=== PATIENT | male | born 1990 | race Two or more races ===

== ENCOUNTER 2016-09-13 18:57 | Emergency (ER) | payer SELFPAY ==
[2016-09-13 19:04] VITALS: BP 144/88; PULSE 101; TEMP 99; BMI 28.1
--- NOTE | 2016-09-13 20:11 | PDOC ---
History of Present Illness - General Chief Complaint: Cold Symptoms Stated Complaint: COLD SYMPTOMS Time Seen by Provider: 09/13/16 19:45 - History of Present Illness Initial Comments: 09/13/16 20:24 Mr. Yang is a 26-year-old male with no PMH presenting to [facility] with a chief complaint complaint of sore throat 3 days. Patient states that his pain is worse when trying to swallow. Denies cough runny nose. States that he had fevers last night with associated chills and nausea. He did not vomit. He last took Tylenol for pain last night. Denies recent travel, sick contacts, chest pain, shortness of breath, diarrhea or constipation, and dysuria. Past History - Past Medical History Allergies/Adverse Reactions: Allergies Allergy/AdvReac Type Severity Reaction Status Date / Time No Known Allergies Allergy Verified 09/13/16 19:01 Home Medications: Ambulatory Orders Ibuprofen 600 mg PO QID #28 tablet 09/13/16 Other medical history: DENIES. - Psycho/Social/Smoking Cessation Hx Suicidal Ideation: No Smoking History: Current some day smoker Have you smoked in the past 12 months: Yes Information on smoking cessation initiated: No *Physical Exam - Vital Signs Last Vital Signs Temp Pulse Resp BP Pulse Ox 99 F 101 H 19 144/88 98 09/13/16 19:01 09/13/16 19:01 09/13/16 19:01 09/13/16 19:01 09/13/16 19:01 - Physical Exam Comments: 09/13/16 20:30 GENERAL: Well developed, well nourished. Awake and alert. No acute distress. VVS HEENT: Normocephalic, atraumatic. PERRLA, EOMI. No conjunctival pallor. Sclera are non- icteric. Moist mucous membranes. Posterior Oropharynx is with erythema and exudate NECK: Supple. Full ROM. No JVD. Carotid pulses 2+ and symmetric, without bruits. No thyromegaly. No lymphadenopathy. CARDIOVASCULAR: Tachycardic. Regular rate and rhythm. No murmurs, rubs, or gallops. Distal pulses are 2+ and symmetric. PULMONARY: No evidence of respiratory distress. Lungs clear to auscultation bilaterally. No wheezing, rales or rhonchi. Medical Decision Making - Medical Decision Making 09/13/16 20:31 Will rule out strep at this time. Swabs sent to lab. We will give Toradol for pain. Reevaluate. 09/13/16 21:56 Strep test is negative. Most likely URI. Will discharge home with ibuprofen. Explained that he should rest and use things that are soothing for his throat. Pt. understands discharge instructions and all questions are answered questions. *DC/Admit/Observation/Transfer Diagnosis at time of Disposition: Upper respiratory infection Qualifiers: URI type: acute pharyngitis Pharyngitis/tonsillitis etiology: unspecified etiology Qualified Code(s): J02.9 - Acute pharyngitis, unspecified - Discharge Dispostion Disposition: HOME Condition at time of disposition: Improved Admit: No - Patient Instructions Printed Discharge Instructions: DI for Viral Upper Respiratory Infection -- Adult Additional Instructions: Usted tiene nikki infeccin respiratoria superior. No hay infeccin bacteriana. Gratz ibuprofeno para el dolor. Rosa Elena mucho lquido y descanse. Vuelva a la lino de emergencias si presenta cualquier sntoma nuevo, tiene dificultad para respirar, empeora la garganta o no puede tragar. Print Language: JAPANESE
[2016-09-13] MEDS ORDERED: KETOROLAC TROMETHAMINE 60 MG/2 ML VIAL IM ONE (20:12)
[2016-09-13] MEDS ORDERED: KETOROLAC TROMETHAMINE 60 MG/2 ML VIAL ONE (20:21)
== END 2016-09-13 22:04 | disposition home or self-care (01) ==
LOC: JERFT 18:57
PROC: 3E0233Z Introduction of Anti-inflammatory into Muscle, Percutaneous Approach (ICD-10-PCS; principal; 2016-09-13)
DX: J06.9 Acute upper respiratory infection, unspecified (principal); F17.210 Nicotine dependence, cigarettes, uncomplicated
CPT/HCPCS: 87070; 87430; 99281-25